=== PATIENT | male | born 1995 | race Caucasian/White ===

== ENCOUNTER 2017-01-04 15:52 | Emergency (ER) | payer OTHER ==
[~2017-01-04] VITALS: Ht 175.3 cm; Wt 73.0 kg
--- NOTE | 2017-01-04 16:15 | PD ---
HPI . new onset seizures Chief Complaint: new onset seizures Time Seen by Provider: 16:15 Travel History International Travel<30 days: No Contact w/Intl Traveler<30days: No Traveled to known affect area: No History of Present Illness HPI 21-year-old male with no past medical history other than tobaccoism here with complaints of new onset seizure. Apparently patient was with his friend and sort of space out and became unresponsive. Unfortunately he is not aware whether or not he had actual convulsions and the friend is not here to give an actual report. Patient has no complaints. He does have bite frost on his tongue. He admits to marijuana usage, but states it was 2 weeks ago. He denies any significant alcohol consumption. He is a smoker and smokes about 10 cigarettes per day. He has no other complaints at this time. He denies any pain. He denies any fever, chills, cold symptoms, chest pain, nausea, vomiting , shortness of breath, abdominal pain, weakness, fatigue, or headache. PFSH Past Medical History Medical History: Denies Significant Hx Past Surgical History Surgical History: No Previous Surgery Social History Alcohol Use: Yes Tobacco Use: Yes Substance Use: Yes Allergies-Medications (Allergen,Severity, Reaction): Coded Allergies: No Known Allergies (Unverified , 01/04/17) Reported Meds & Prescriptions Reported Meds & Active Scripts Active No Active Prescriptions or Reported Medications Review of Systems General / Constitutional: No: Fever Eyes: No: Visual changes HENT: No: Headaches Cardiovascular: No: Chest Pain or Discomfort Respiratory: No: Shortness of Breath Gastrointestinal: No: Abdominal Pain Genitourinary: No: Dysuria Musculoskeletal: No: Pain Skin: No Rash Neurologic: Positive: Seizures, No: Weakness Psychiatric: No: Depression Endocrine: No: Polydipsia Hematologic/Lymphatic: No: Easy Bruising Physical Exam Narrative GENERAL: AAO x 3, no acute distress, Well-nourished, well-developed patient. SKIN: Warm and dry. No visible rashes or bruising. HEAD: Normocephalic and atraumatic. EYES: No scleral icterus. No injection or drainage. ENT: No nasal drainage noted. Mucous membranes pink. Airway patent. Bite frost on the distal portion of the tongue NECK: Supple, trachea midline. No JVD. CARDIOVASCULAR: Regular rate and rhythm without murmurs, gallops, or rubs. RESPIRATORY: Breath sounds equal bilaterally. No accessory muscle use. No rhonchi or rales. GASTROINTESTINAL: Abdomen soft, non-tender, nondistended. EXTREMITIES: No cyanosis or edema. NEURO: CN II through XII intact. Supervisor Fitting strength equal bilaterally. Muscle strength in upper and lower extremities normal. BACK: Nontender without obvious deformity. No CVA tenderness. PSYCH: AAO x 3, normal affect. Data Data Last Documented VS Vital Signs Date Time Temp Pulse Resp B/P Pulse Ox O2 Delivery O2 Flow Rate FiO2 01/04/17 16:20 97.9 88 20 140/85 99 Orders Electrocardiogram (01/04/17 ) Complete Blood Count With Diff (01/04/17 16:23) Alcohol (Ethanol) (01/04/17 16:23) Drug Screen, Random Urine (01/04/17 16:23) Ct Brain W/O Iv Contrast(Rout) (01/04/17 ) Blood Glucose (01/04/17 16:23) Ecg Monitoring (01/04/17 16:23) Iv Access Insert/Monitor (01/04/17 16:23) Oximetry (01/04/17 16:23) Comprehensive Metabolic Panel (01/04/17 16:23) Troponin I (01/04/17 16:27) ^ Seizure Precautions (01/04/17 16:54) Labs Laboratory Tests Test 01/04/17 01/04/17 01/04/17 16:27 16:35 18:45 Troponin I LESS THAN 0.02 NG/ML White Blood Count 11.1 TH/MM3 Red Blood Count 4.90 MIL/MM3 Hemoglobin 14.9 GM/DL Hematocrit 43.4 % Mean Corpuscular Volume 88.6 FL Mean Corpuscular Hemoglobin 30.3 PG Mean Corpuscular Hemoglobin 34.2 % Concent Red Cell Distribution Width 12.9 % Platelet Count 190 TH/MM3 Mean Platelet Volume 9.6 FL Neutrophils (%) (Auto) 87.0 % Lymphocytes (%) (Auto) 7.7 % Monocytes (%) (Auto) 4.8 % Eosinophils (%) (Auto) 0.2 % Basophils (%) (Auto) 0.3 % Neutrophils # (Auto) 9.7 TH/MM3 Lymphocytes # (Auto) 0.9 TH/MM3 Monocytes # (Auto) 0.5 TH/MM3 Eosinophils # (Auto) 0.0 TH/MM3 Basophils # (Auto) 0.0 TH/MM3 CBC Comment DIFF FINAL Differential Comment Sodium Level 140 MEQ/L Potassium Level 4.1 MEQ/L Chloride Level 105 MEQ/L Carbon Dioxide Level 22.2 MEQ/L Anion Gap 13 MEQ/L Blood Urea Nitrogen 14 MG/DL Creatinine 1.42 MG/DL Estimat Glomerular Filtration 62 ML/MIN Rate Random Glucose 87 MG/DL Calcium Level 9.1 MG/DL Total Bilirubin 0.5 MG/DL Aspartate Amino Transf 19 U/L (AST/SGOT) Alanine Aminotransferase 26 U/L (ALT/SGPT) Alkaline Phosphatase 55 U/L Total Protein 7.7 GM/DL Albumin 4.3 GM/DL Ethyl Alcohol Level LESS THAN 3 MG/DL Urine Opiates Screen NEG Urine Barbiturates Screen NEG Urine Amphetamines Screen NEG Urine Benzodiazepines Screen NEG Urine Cocaine Screen NEG Urine Cannabinoids Screen POS MDM Medical Decision Making Medical Screen Exam Complete: Yes Emergency Medical Condition: Yes Medical Record Reviewed: Yes (none on file ) Differential Diagnosis New onset Seizure disorder, substance abuse, Narrative Course 21-year-old male with no past medical history other than tobaccoism here with complaints of new onset seizure. Apparently patient was with his friend and sort of space out and became unresponsive. Unfortunately he is not aware whether or not he had actual convulsions and the friend is not here to give an actual report. Patient has no complaints. He does have bite frost on his tongue. He admits to marijuana usage, but states it was 2 weeks ago. He denies any significant alcohol consumption. He is a smoker and smokes about 10 cigarettes per day. He has no other complaints at this time. He denies any pain. He denies any fever, chills, cold symptoms, chest pain, nausea, vomiting , shortness of breath, abdominal pain, weakness, fatigue, or headache. Seen and examined. Case discussed with Dr. khan Recommend CT scan of the brain, tox screen, alcohol screen and labs. Workup is in progress. Patient is comfortable and in no type of pain. 1852: Patient seen again and is doing well. He is feeling fine. He has no headache, no neuro deficits. His best friend is next to him at bedside. Patient verbalizing that he once to go home if possible as he has a to attend tomorrow. We had a prolonged discussion regarding this new onset of what appears to be a seizure. His been fine since he's been here for the past several hours. I recommend follow-up with neurology. Patient tells me he will make an appointment as soon as possible. We will hold off on any medications as the etiology of this is unclear. It is very likely that some type of illegal substance may have caused this. Patient verbalized understanding of instructions, questions were answered, and thanked me for their care. I advised them if their condition worsens, please return to the nearest emergency room for further care. Diagnosis Primary Impression: Seizure Patient Instructions: General Instructions, New-Onset Seizure in Adults (DC) Additional Instructions: Please return to emergency department if your symptoms return or worsen. Follow up with your primary care provider. As we discussed, you will need to see a neurologist. Please make this appointment in the next few days. Med/Other Pt SpecificInfo: No Change to Meds Scripts No Active Prescriptions or Reported Meds Disposition: 01 DISCHARGE HOME Condition: Stable Merna Neely Jan 04, 2017 16:15
[2017-01-04 16:20] VITALS: BP 140/85; PULSE 88; RESP 20; TEMP 97.9; O2SAT 99
--- NOTE | 2017-01-04 17:26 | RADRPT ---
EXAM DATE/TIME: 01/04/2017 17:16 [facility] COMPARISON: No previous studies available for comparison. INDICATIONS : Possible seizure today. RADIATION DOSE: 34.14 CTDIvol (mGy) MEDICAL HISTORY : None SURGICAL HISTORY : None. ENCOUNTER: Initial ACUITY: 1 day PAIN SCALE: 6/10 LOCATION: cranial TECHNIQUE: Multiple contiguous axial images were obtained of the head. Using automated exposure control and adj ustment of the mA and/or kV according to patient size, radiation dose was kept as low as reasonably a chievable to obtain optimal diagnostic quality images. FINDINGS: CEREBRUM: The ventricles are normal for age. No evidence of midline shift, mass lesion, hemorrhage or acute in farction. No extra-axial fluid collections are seen. POSTERIOR FOSSA: The cerebellum and brainstem are intact. The 4th ventricle is midline. The cerebellopontine angle i s unremarkable. EXTRACRANIAL: The visualized portion of the orbits is intact. SKULL: The calvaria is intact. No evidence of skull fracture. CONCLUSION: Normal examination. Jimenez Minaya MD on January 04, 2017 at 17:24 Board Certified Radiologist. This report was verified electronically.
[2017-01-04 17:30] LABS: AUTOMATED NEUTROPHIL # 9.7 TH/MM3 (1.8-7.7); BASOPHIL % 0.3 % (0.0-2.0); EOSINOPHIL % 0.2 % (0.0-4.0); HEMATOCRIT 43.4 % (39.0-51.0); HEMO FLAGS DIFF FINAL; LYMPH % 7.7 % (9.0-44.0); LYMPHOCYTE # 0.9 TH/MM3 (1.0-4.8); MEAN CELL VOLUME 88.6 FL (80.0-100.0); MEAN CORPUSCULAR HEMOGLOBIN 30.3 PG (27.0-34.0); MEAN CORPUSCULAR HGB CONC 34.2 % (32.0-36.0); MONO % 4.8 % (0.0-8.0); PLATELET COUNT 190 TH/MM3 (150-450); RED CELL DISTRIBUTION WIDTH 12.9 % (11.6-17.2); WHITE BLOOD COUNT 11.1 TH/MM3 (4.0-11.0)
[2017-01-04 17:53] LABS: ALT (GPT) 26 U/L (12-78); ANION GAP 13 MEQ/L (5-15); AST (GOT) 19 U/L (15-37); BICARBONATE 22.2 MEQ/L (21.0-32.0); BLOOD UREA NITROGEN 14 MG/DL (7-18); CHLORIDE 105 MEQ/L (98-107); GLOMERULAR FILTRATION RATE 62 ML/MIN (>89); POTASSIUM 4.1 MEQ/L (3.5-5.1); SODIUM (NA) 140 MEQ/L (136-145)
[2017-01-04 17:56] LABS: ALKALINE PHOSPHATASE 55 U/L (45-117); TOTAL BILIRUBIN ADULT 0.5 MG/DL (0.2-1.0)
[2017-01-04 19:01] LABS: AMPHETAMINE, URINE NEG (NEG); BARBITURATES, URINE NEG (NEG); COCAINE, URINE NEG (NEG)
--- NOTE | 2017-01-05 14:02 | EKG ---
Date Performed: 01/04/2017 Time Performed: 16:27:31 PTAGE: 21 years EKG: Sinus rhythm WITH MARKED SINUS ARRHYTHMIA POSSIBLE RIGHT VENTRICULAR CONDUCTION DELAY NONSPECIFIC T-WAVE ABNORMAL ITY BORDERLINE ECG NO PREVIOUS TRACING DOCTOR: Vin Bedoya Interpretating Date/Time 01/05/2017 13:56:22
== END 2017-01-04 19:45 | disposition home or self-care (01) ==
LOC: NEPC 15:52
DX: R56.9 Unspecified convulsions (principal); Z72.0 Tobacco use
CPT/HCPCS: 70450; 80053; 80307; 84484; 85025; 93005